=== PATIENT | male | born 1945 | race Caucasian/White ===

== ENCOUNTER 2021-10-04 18:42 | Emergency (ER) | payer MEDICARE, OTHER ==
[~2021-10-04] VITALS: Ht 170.2 cm; Wt 75.0 kg
[2021-10-04] MEDS ORDERED: APIX5TAB PO (19:02)
[2021-10-04] MEDS ORDERED: AMLO2.5T29 PO (19:02)
[2021-10-04] MEDS ORDERED: SOTA80 PO (19:02)
[2021-10-04] MEDS ORDERED: AMLO-258 PO (19:06)
[2021-10-04 21:16] VITALS: BP 138/72
[2021-10-04 21:21] LABS: COVID AG,FIA SOURCE NASAL SWAB
== END 2021-10-04 22:34 | disposition left against medical advice (07) ==
LOC: EMS 18:45
DX: U07.1 COVID-19 (principal); I48.91 Unspecified atrial fibrillation; I10 Essential (primary) hypertension; Z96.89 Presence of other specified functional implants; Z96.649 Presence of unspecified artificial hip joint; Z98.890 Other specified postprocedural states
CPT/HCPCS: 71045; 93005; 99281; 36415-L1; 36415-TC